=== PATIENT | male | born 1995 ===

== ENCOUNTER 2019-06-19 11:29 | Emergency (ER) | payer OTHER ==
[2019-06-19 11:49] VITALS: BP 150/88
--- NOTE | 2019-06-19 12:17 | UC ---
Respiratory Complaint HPI - HPI Summary HPI Summary: Ill for 2 weeks with dry non-productive cough. States in the past was given an albuterol inhaler which helped his cough. Denies fever but does have a low- grade fever today. Non-smoker - History of Current Complaint Chief Complaint: UCRespiratory Stated Complaint: COUGH Time Seen by Provider: 06/19/19 12:07 Hx Obtained From: Patient Onset/Duration: Gradual Onset Timing: Intermittent Episodes Severity Initially: Mild Severity Currently: Mild Pain Intensity: 0 Character: Cough: Nonproductive Aggravating Factors: Nothing Alleviating Factors: Nothing Associated Signs And Symptoms: Positive: URI, Nasal Congestion - Allergies/Home Medications Allergies/Adverse Reactions: Allergies Allergy/AdvReac Type Severity Reaction Status Date / Time No Known Allergies Allergy Verified 06/19/19 11:49 Home Medications: Home Medications Dextromethorphan HBr [Robafen Cough] 1 dose PO BID PRN 06/19/19 [History Confirmed 06/19/19] [employer] Lozenge 1 tab PO DAILY PRN 06/19/19 [History] PMH/Surg Hx/FS Hx/Imm Hx Previously Healthy: Yes - Surgical History Surgical History: None - Family History Known Family History: Positive: Non-Contributory - Social History Occupation: Student Lives: With Family Alcohol Use: Rare Substance Use Type: None Smoking Status (MU): Never Smoked Tobacco Review of Systems All Other Systems Reviewed And Are Negative: Yes ENT: Positive: Nasal Discharge Respiratory: Positive: Cough - Dry, non-productive cough Is Patient Immunocompromised?: No Physical Exam Triage Information Reviewed: Yes Appearance: Well-Appearing, No Pain Distress, Well-Nourished Vital Signs: Initial Vital Signs Temp 99.9 F 06/19/19 11:46 Pulse 102 06/19/19 11:46 Resp 18 06/19/19 11:46 BP 150/88 06/19/19 11:46 Pulse Ox 100 06/19/19 11:46 Vital Signs Reviewed: Yes Eyes: Positive: Conjunctiva Clear ENT: Positive: Hearing grossly normal, Pharynx normal, Nasal congestion, Nasal drainage - Clear nasal coryza, TMs normal, Uvula midline. Negative: Sinus tenderness Neck: Positive: Supple, Nontender, No Lymphadenopathy Respiratory: Positive: Lungs clear, Normal breath sounds, No respiratory distress, No accessory muscle use Cardiovascular: Positive: RRR, No Murmur, Pulses Normal, Brisk Capillary Refill Musculoskeletal Exam: Normal Neurological Exam: Normal Psychological Exam: Normal Skin Exam: Normal Respiratory Course/Dx - Course Course Of Treatment: CXR:REPORT: Clear lungs and pleural spaces. Negative for pneumothorax. The heart , pulmonary vasculature, and mediastinal contours are unremarkable. Unremarkable osseous structures and soft tissue contours. IMPRESSION: #. No evidence for pneumonia. #. No evidence for acute intrathoracic disease. Because an albuterol inhaler has helped the patient in the past, I will give him that RX with definite follow up with his own doctor or at the [facility] - Differential Dx/Diagnosis Provider Diagnosis: URI (upper respiratory infection) Discharge ED - Sign-Out/Discharge Documenting (check all that apply): Patient Departure All imaging exams completed and their final reports reviewed: Yes - Discharge Plan Condition: Good Disposition: HOME Prescriptions: Albuterol HFA INHALER* [Ventolin HFA Inhaler*] 2 puff INH Q4H PRN 5 Days #1 mdi PRN Reason: Wheezing Patient Education Materials: Upper Respiratory Infection (ED) Referrals: Kashif Pluido MD [Primary Care Provider] - Additional Instructions: Increase fluids, use your inhaler 2 puffs every 4 hours while awake for wheezing or tight cough. See your primary care doctor if no improvement in 4-5 days or if continued fever - Billing Disposition and Condition Condition: GOOD Disposition: Home
== END 2019-06-19 13:00 | disposition home or self-care (01) ==
LOC: UCEAST 11:29
DX: J06.9 Acute upper respiratory infection, unspecified (principal); R09.89 Other specified symptoms and signs involving the circulatory and respiratory systems
CPT/HCPCS: 71046; 99202; G0463